=== PATIENT | female | born 1985 | race American Indian/Alaskan Native ===

== ENCOUNTER 2018-12-23 17:57 | Emergency (ER) | payer SELFPAY ==
--- NOTE | 2018-12-23 18:04 | Event Note ---
ED Screening Note ED Screening Note: pt states she slipped on a cookie and almost fell states she has lower back pain and right ankle pain did not actually fall pt is ambulatory LNMP: December 03, 2018 This initial assessment/diagnostic orders/clinical plan/treatment(s) is/are subject to change based on patients health status, clinical progression and re- assessment by fellow clinical providers in the ED. Further treatment and workup at subsequent clinical providers discretion. Patient/guardian urged not to elope from the ED as their condition may be serious if not clinically assessed and managed. Initial orders include: XR of the L-spine, XR of the right ankle
[2018-12-23] MEDS ORDERED: TYLENOL PO ONE (19:34)
[2018-12-23] MEDS ORDERED: IBUPROFEN PO ONE (19:34)
[2018-12-23] MEDS ORDERED: ZOFRAN ODT PO ONE (20:17)
[2018-12-23] MEDS ORDERED: PERCOCET 5/325 PO ONE (20:17)
--- NOTE | 2018-12-23 20:23 | XRay Report ---
RIGHT ANKLE 3 VIEWS. INDICATION / CLINICAL INFORMATION: slipped, right ankle pain COMPARISON: None available. FINDINGS: BONES / JOINT(S): No acute fracture or subluxation. No significant arthritis. SOFT TISSUES: Mild soft tissue swelling laterally. ADDITIONAL FINDINGS: None. Signer Name: Anthony Frank MD Signed: 12/23/2018 8:19 PM Workstation Name: [id number]
--- NOTE | 2018-12-23 20:24 | XRay Report ---
LUMBAR SPINE 3 VIEWS. INDICATION / CLINICAL INFORMATION: slipped, lower back pain COMPARISON: None available. FINDINGS: BONES / JOINT(S): No acute fracture or subluxation. Mild degenerative disc disease L4-L5. SOFT TISSUES: No significant abnormality. ADDITIONAL FINDINGS: An IUD overlies the pelvis. Signer Name: Anthony Frank MD Signed: 12/23/2018 8:20 PM Workstation Name: [id number]
--- NOTE | 2018-12-23 21:16 | Emergency Department Report ---
ED General Adult HPI - General Chief complaint: Fall Stated complaint: (R)ANKLE/(R)KNEE/BACK PAIN Time Seen by Provider: 12/23/18 18:02 Source: patient Mode of arrival: Ambulatory Limitations: No Limitations - History of Present Illness Initial comments: Patient is a 33-year-old -Turkmen female with no past medical history presents to the ED with [place] of acute onset severe right ankle pain and low back pain after she slipped on the flow and twisted her lower back and her right ankle to break a fall about 2 hours ago. Patient states that the pain in the lower back and right ankle of worsened in the last one now and that she is not able to bear weight on her right ankle because of pain. Patient denies fall, traumatic injury, numbness and tingling of lower extremities bilaterally, nausea, vomiting, hematuria, dizziness, abdominal pain, saddle paresthesia, urinary bowel incontinence. MD Complaint: low back pain; right ankle pain -: Sudden, hour(s) (2) Location: back (lower), lower extremity (right ankle) Radiation: non-radiation Severity scale (0 -10): 8 Quality: aching, sharp, constant Consistency: constant Improves with: none Worsens with: movement Associated Symptoms: denies other symptoms. denies: confusion, chest pain, cough, diaphoresis, fever/chills, headaches, loss of appetite, malaise, nausea/vomiting, rash, seizure, shortness of breath, syncope, weakness Treatments Prior to Arrival: none - Related Data Previous Rx's Medication Instructions Recorded Last Taken Type Baclofen 20 mg PO Q8H PRN #24 tablet 12/23/18 Unknown Rx Ibuprofen [Motrin] 800 mg PO Q8HR PRN #24 tablet 12/23/18 Unknown Rx predniSONE [Deltasone] 60 mg PO QDAY #15 tab 12/23/18 Unknown Rx traMADol [Ultram] 50 mg PO Q6HR PRN #15 tablet 12/23/18 Unknown Rx Allergies Allergy/AdvReac Type Severity Reaction Status Date / Time No Known Allergies Allergy Unverified 12/23/18 18:01 ED Review of Systems ROS: Stated complaint: (R)ANKLE/(R)KNEE/BACK PAIN Other details as noted in HPI Constitutional: denies: chills, fever Eyes: denies: eye pain, eye discharge, vision change ENT: denies: ear pain, throat pain Respiratory: denies: cough, shortness of breath, wheezing Cardiovascular: denies: chest pain, palpitations Endocrine: no symptoms reported Gastrointestinal: denies: abdominal pain, nausea, diarrhea Genitourinary: denies: urgency, dysuria, discharge Musculoskeletal: back pain (lower), arthralgia (right ankle). denies: joint swelling Skin: denies: rash, lesions Neurological: denies: headache, weakness, paresthesias Psychiatric: denies: anxiety, depression Hematological/Lymphatic: denies: easy bleeding, easy bruising ED Past Medical Hx - Past Medical History Previous Medical History?: No - Surgical History Past Surgical History?: No - Social History Smoking Status: Never Smoker Substance Use Type: None - Medications Home Medications: Home Medications Medication Instructions Recorded Confirmed Last Taken Type Baclofen 20 mg PO Q8H PRN #24 tablet 12/23/18 Unknown Rx Ibuprofen [Motrin] 800 mg PO Q8HR PRN #24 tablet 12/23/18 Unknown Rx predniSONE [Deltasone] 60 mg PO QDAY #15 tab 12/23/18 Unknown Rx traMADol [Ultram] 50 mg PO Q6HR PRN #15 tablet 12/23/18 Unknown Rx ED Physical Exam - General Limitations: No Limitations General appearance: alert, in no apparent distress - Head Head exam: Present: atraumatic, normocephalic, normal inspection - Eye Eye exam: Present: normal appearance, PERRL, EOMI - ENT ENT exam: Present: normal exam, normal orophraynx, mucous membranes moist, TM's normal bilaterally, normal external ear exam - Neck Neck exam: Present: normal inspection, full ROM. Absent: tenderness, meningismus, lymphadenopathy, thyromegaly - Respiratory Respiratory exam: Present: normal lung sounds bilaterally. Absent: respiratory distress, wheezes, rales, stridor, chest wall tenderness - Cardiovascular Cardiovascular Exam: Present: regular rate, normal rhythm, normal heart sounds. Absent: systolic murmur, diastolic murmur, rubs, gallop - GI/Abdominal GI/Abdominal exam: Present: soft, normal bowel sounds. Absent: distended, tenderness, guarding, rebound, hyperactive bowel sounds, organomegaly, mass - Rectal Rectal exam: Present: deferred - Extremities Exam Extremities exam: Present: normal inspection, tenderness (right ankle tenderness), normal capillary refill. Absent: joint swelling - Back Exam Back exam: Present: normal inspection, tenderness (palpable lumbosacral paraspinal musculoskeletal tenderness), muscle spasm, paraspinal tenderness. Absent: full ROM (limited ROM due to pain), CVA tenderness (R), CVA tenderness (L), vertebral tenderness - Neurological Exam Neurological exam: Present: alert, oriented X3, CN II-XII intact, normal gait, reflexes normal - Psychiatric Psychiatric exam: Present: normal affect, normal mood - Skin Skin exam: Present: warm, dry, intact, normal color. Absent: rash ED Course Vital Signs 12/23/18 18:02 Temperature 98.2 F Pulse Rate 78 Respiratory 19 Rate Blood Pressure 114/75 [Left] O2 Sat by Pulse 98 Oximetry - Reevaluation(s) Reevaluation #1: 12/23/18 21:40 This is a 33-year-old Turkmen female who presented to the ED with acute onset of low back pain and right ankle pain after she twisted to prevent herself from falling at home about 2 hours ago. Patient is alert and oriented 3 and is not in distress with normal vital signs but appears to be in pain in the ED. L- spine x-ray shows no acute fractures or subluxations. Right ankle x-ray shows no fractures or subluxations. Patient's symptoms appear to be musculoskeletal possibly muscle strain or muscle spasms. Patient was treated in the ED with pain medications and discharged home on pain medications and muscle relaxants, and advised to follow-up with her primary care physician in 5-7 days for reevaluation or return to the ED immediately if symptoms get worse. ED Medical Decision Making - Radiology Data Radiology results: report reviewed, image reviewed Findings [facility] [address] [place] [address] XRay Report Signed Patient: LAILA IRBY R#: [id number] : 1985 Acct:[id number] Age/Sex: 33 / F ADM Date: 12/23/18 Loc: ED Attending Dr: Ordering Physician: TERESA KAPLAN Date of Service: 12/23/18 Procedure(s): XR ankle 3+V RT Accession Number(s): [id number] cc: TERESA KAPLAN Fluoro Time In Minutes: RIGHT ANKLE 3 VIEWS. INDICATION / CLINICAL INFORMATION: slipped, right ankle pain COMPARISON: None available. FINDINGS: BONES / JOINT(S): No acute fracture or subluxation. No significant arthritis. SOFT TISSUES: Mild soft tissue swelling laterally. ADDITIONAL FINDINGS: None. Signer Name: Anthony Frank MD Signed: 12/23/2018 8:19 PM Workstation Name: [id number] Transcribed By: ES Dictated By: Anthony Frank MD Electronically Authenticated By: Anthony Frank MD Signed Date/Time: 12/23/18 2019 Findings [facility] [address] [place] [address] XRay Report Signed Patient: LAILA IRBY R#: [id number] : 1985 Acct:[id number] Age/Sex: 33 / F ADM Date: 12/23/18 Loc: ED Attending Dr: Ordering Physician: TERESA KAPLAN Date of Service: 12/23/18 Procedure(s): XR spine lumbosacral 2-3V Accession Number(s): [id number] cc: TERESA KAPLAN Fluoro Time In Minutes: LUMBAR SPINE 3 VIEWS. INDICATION / CLINICAL INFORMATION: slipped, lower back pain COMPARISON: None available. FINDINGS: BONES / JOINT(S): No acute fracture or subluxation. Mild degenerative disc disease L4-L5. SOFT TISSUES: No significant abnormality. ADDITIONAL FINDINGS: An IUD overlies the pelvis. Signer Name: Anthony Frank MD Signed: 12/23/2018 8:20 PM Workstation Name: [id number] Transcribed By: ES Dictated By: Anthony Frank MD Electronically Authenticated By: Anthony Frank MD Signed Date/Time: 12/23/182019 - Medical Decision Making This is a 33-year-old Turkmen female who presented to the ED with acute onset of low back pain and right ankle pain after she twisted to prevent herself from falling at home about 2 hours ago. Patient is alert and oriented 3 and is not in distress with normal vital signs but appears to be in pain in the ED. L- spine x-ray shows no acute fractures or subluxations. Right ankle x-ray shows no fractures or subluxations. Patient's symptoms appear to be musculoskeletal possibly muscle strain or muscle spasms. Patient was treated in the ED with pain medications and discharged home on pain medications and muscle relaxants, and advised to follow-up with her primary care physician in 5-7 days for reeva luation or return to the ED immediately if symptoms get worse. - Differential Diagnosis muscle spasm; right ankle sprain; muscle strain Critical care attestation.: If time is entered above; I have spent that time in minutes in the direct care of this critically ill patient, excluding procedure time. ED Disposition Clinical Impression: Spasm of muscle of lower back, Muscle strain Acute low back pain Qualifiers: Back pain laterality: unspecified Sciatica presence: without sciatica Qualified Code(s): M54.5 - Low back pain Severe sprain of right ankle Qualifiers: Encounter type: initial encounter Qualified Code(s): S93.401A - Sprain of unspecified ligament of right ankle, initial encounter Disposition: TO HOME OR SELFCARE Is pt being admited?: No Does the pt Need Aspirin: No Condition: Stable Instructions: Muscle Strain (ED), Ankle Sprain (ED), Muscle Spasm (ED), Acute Low Back Pain (ED) Additional Instructions: Take medications with food, drink plenty of fluids and follow-up with your primary care physician in 5-7 days for reevaluation. Return to the ED immediately if symptoms get worse. Prescriptions: Baclofen 20 mg PO Q8H PRN #24 tablet PRN Reason: Spasms predniSONE [Deltasone] 60 mg PO QDAY #15 tab Ibuprofen [Motrin] 800 mg PO Q8HR PRN #24 tablet PRN Reason: Pain , Severe (7-10) traMADol [Ultram] 50 mg PO Q6HR PRN #15 tablet PRN Reason: Pain Referrals: [facility] [Outside] - 3-5 Days Time of Disposition: 21:43 Print Language: VENEZUELAN
[2018-12-23 22:08] VITALS: BP 114/72
== END 2018-12-23 22:07 | disposition home or self-care (01) ==
LOC: ED 17:57
DX: S93.401A Sprain of unspecified ligament of right ankle, initial encounter (principal); S39.012A Strain of muscle, fascia and tendon of lower back, initial encounter; M62.830 Muscle spasm of back; W01.0XXA Fall on same level from slipping, tripping and stumbling without subsequent striking against object, initial encounter; Y93.89 Activity, other specified; Y92.89 Other specified places as the place of occurrence of the external cause; Y99.8 Other external cause status
CPT/HCPCS: 72100; Q0162